=== PATIENT | male | born 1995 | race African-American/Black ===

== ENCOUNTER 2020-06-03 19:22 | Emergency (ER) | payer SELFPAY ==
[2020-06-03 19:48] VITALS: BP 132/80; PULSE 100; TEMP 97.9; BMI 33.4
[2020-06-03] MEDS ORDERED: ALBUTEROL SO4 HFA INHALER IH ONE (22:12)
[2020-06-03] MEDS ORDERED: IBUPROFEN 600 MG TABLET (FP) PO ONE ×2 (22:55→22:59)
== END 2020-06-03 23:21 | disposition home or self-care (01) ==
LOC: JER 19:22
PROC: 3E0F7GC Introduction of Other Therapeutic Substance into Respiratory Tract, Via Natural or Artificial Opening (ICD-10-PCS; principal; 2020-06-03)
DX: R07.89 Other chest pain (principal); J45.909 Unspecified asthma, uncomplicated
CPT/HCPCS: 71046-TC-FY; 93005; 93010; 99284-25